=== PATIENT | female | born 1995 | race Caucasian/White ===

== ENCOUNTER 2022-06-07 11:56 | Emergency (ER) | payer SELFPAY ==
[~2022-06-07] VITALS: Ht 167.6 cm; Wt 180.6 kg
[2022-06-07] MEDS ORDERED: LISINOPRIL10 MG PO (12:31)
[2022-06-07 13:35] LABS: BASO # 0.03 K/mm3 (0.02-0.10); EOS # 0.14 K/mm3 (0.04-0.40); EOS % 1.8 % (1.0-5.0); HEMATOCRIT 46.6 % (37.0-47.0); HEMOGLOBIN 15.6 g/dL (12.5-16.0); LYMPH# 2.03 K/mm3 (1.50-4.00); MEAN CELL VOLUME 89 fl (78-100); MEAN CORPUSCULAR HEMOGLOBIN 30 pg (27-31); MEAN CORPUSCULAR HGB CONC 34 g/dL (33-37); MONO # 0.39 K/mm3 (0.20-0.80); NEU # 5.16 K/mm3 (1.40-6.50); PLATELET COUNT 274 K/mm3 (130-400); RED BLOOD COUNT 5.22 M/mm3 (4.10-5.30); RED CELL DISTRIBUTION WIDTH 13.8 % (11.5-14.5); WHITE BLOOD COUNT 7.8 K/mm3 (4.8-10.8)
[2022-06-07 13:41] LABS: POTASSIUM 4.3 mmol/L (3.5-5.1)
[2022-06-07 13:42] LABS: CALCIUM 9.3 mg/dL (8.3-10.5)
[2022-06-07] MEDS ORDERED: TOPCARE OMEPRAZ20 MG PO (14:21)
[2022-06-07 14:29] VITALS: BP 145/94
== END 2022-06-07 14:30 | disposition home or self-care (01) ==
LOC: ED 11:56
PROVIDERS: Family Medicine
DX: G44.209 Tension-type headache, unspecified, not intractable (principal); G43.909 Migraine, unspecified, not intractable, without status migrainosus; N91.2 Amenorrhea, unspecified; K21.9 Gastro-esophageal reflux disease without esophagitis; I10 Essential (primary) hypertension; E66.01 Morbid (severe) obesity due to excess calories; Z68.44 Body mass index [BMI] 60.0-69.9, adult; Z79.899 Other long term (current) drug therapy

== ENCOUNTER → 2023-09-10 | Outpatient (CLI) | payer OTHER ==
[~2023-09-10] MED LIST: LISINOPRIL10 MG PO; TOPCARE OMEPRAZ20 MG PO
[2023-10-30 10:56] LABS: CALCIUM 9.1 mg/dL (8.3-10.5); TOTAL BILIRUBIN 0.5 mg/dL (0.2-1.2); TOTAL PROTEIN 7.2 g/dL (6.4-8.3)
[2023-10-30 11:50] LABS: BASO # 0.03 K/mm3 (0.02-0.10); EOS # 0.13 K/mm3 (0.04-0.40); EOS % 1.8 % (1.0-5.0); HEMATOCRIT 43.8 % (37.0-47.0); HEMOGLOBIN 14.5 g/dL (12.5-16.0); LYMPH# 2.44 K/mm3 (1.50-4.00); MEAN CELL VOLUME 90 fl (78-100); MEAN CORPUSCULAR HEMOGLOBIN 30 pg (27-31); MEAN CORPUSCULAR HGB CONC 33 g/dL (33-37); MEAN PLATELET VOLUME 9.4 fl (7.4-10.4); MONO # 0.45 K/mm3 (0.20-0.80); NEU # 3.98 K/mm3 (1.40-6.50); PLATELET COUNT 282 K/mm3 (130-400); RED BLOOD COUNT 4.89 M/mm3 (4.10-5.30); WHITE BLOOD COUNT 7.1 K/mm3 (4.8-10.8)
== END ==
LOC: LAB 09:48
PROVIDERS: Nurse Practitioner
DX: Z13.220 Encounter for screening for lipoid disorders (principal); F41.8 Other specified anxiety disorders

== ENCOUNTER → 2024-03-17 | Outpatient (CLI) | payer OTHER ==
[2024-03-17 22:47] LABS: LUTENIZING HORMONE 3.7 mIU/mL (())
== END ==
LOC: LAB 07:49
PROVIDERS: Nurse Practitioner
DX: E28.2 Polycystic ovarian syndrome (principal); R63.8 Other symptoms and signs concerning food and fluid intake

== ENCOUNTER → 2024-04-03 | Outpatient (CLI) | payer OTHER | LOC: RAD 17:48 | DX: M79.675 Pain in left toe(s) (principal) ==